=== PATIENT | female | born 1990 | race Caucasian/White ===

== ENCOUNTER 2017-05-24 05:29 | Day surgery (SDC) | payer BC, OTHER ==
[2017-05-24] MEDS ORDERED: PROPOFOL 200 MG/20 ML BOTTLE IV ONE (05:30)
[2017-05-24] MEDS ORDERED: GLYCOPYRROLATE 0.2 MG/ML VIAL MC ONE (05:30)
[2017-05-24] MEDS ORDERED: NEOSTIGMINE METHYLSULFATE 10 MG/10 ML VIAL IV ONE (05:30)
[2017-05-24] MEDS ORDERED: LIDOCAINE HCL 1% 20 ML VIAL MC ONE (05:30)
[2017-05-24] MEDS ORDERED: CEFAZOLIN 1 G VIAL MC ONE (05:30)
[2017-05-24] MEDS ORDERED: ONDANSETRON 4 MG/2 ML VIAL IV ONE (05:30)
[2017-05-24] MEDS ORDERED: IV LACTATED RINGERS SOLUTION 1,000 ML BAG IV ONE (05:30)
[2017-05-24] MEDS ORDERED: DEXAMETHASONE SOD PHOSPHATE 4 MG INJ IV ONE (05:30)
[2017-05-24] MEDS ORDERED: DESFLURANE ANESTHESIA GAS 240 ML BOTTLE IH ONE (05:30)
[2017-05-24] MEDS ORDERED: CEFAZOLIN 50 ML IV ONE (05:55)
[2017-05-24 06:01] LABS: *BILIRUBIN,URIN NEGATIVE (NEGATIVE); *BLOOD, URINE NEGATIVE (NEGATIVE); *CLARITY,URINE SLIGHTLY CLOUDY (CLEAR); *COLOR,URINE YELLOW (YELLOW); *KETONES,URINE NEGATIVE (NEGATIVE); *PROTEIN,URINE NEGATIVE (NEGATIVE); *UROBILINOGEN,URINE 0.2 E.U./dl (NORMAL); LEUKOCYTE ESTERASE ,URINE 1+ (NEGATIVE); NITRITE, URINE NEGATIVE (NEGATIVE); UGLUCOSE NEGATIVE (NEGATIVE)
[2017-05-24 06:04] LABS: *URINE HCG, QUAL NEGATIVE (NEGATIVE)
[2017-05-24 06:05] LABS: BACTERIA,URINE NONE SEEN /HPF (NONE SEEN); RBC,URINE NONE SEEN /HPF (0-3); SQUAMOUS EPITHELIAL CELL,UR MANY /HPF (NONE SEEN)
[2017-05-24 06:10] LABS: CREATININE 0.8 mg/dL (0.6-1.3); POTASSIUM 3.6 mmol/L (3.5-5.1)
[2017-05-24] MEDS ORDERED: BACITRACIN 50,000 UNITS VIAL ONE (06:41)
[2017-05-24] MEDS ORDERED: LIDOCAINE 1%-EPI 1:100,000 20 ML VIAL ONE (06:41)
[2017-05-24] MEDS ORDERED: MIDAZOLAM HCL 2 MG/2 ML VIAL ONE (07:08)
[2017-05-24] MEDS ORDERED: FENTANYL CITRATE 100 MCG/2 ML AMPUL ONE ×2 (07:08→08:34)
[2017-05-24] MEDS ORDERED: ROCURONIUM BROMIDE 50 MG/5 ML VIAL ONE (07:08)
== END 2017-05-24 10:50 | disposition home or self-care (01) ==
LOC: DS 05:29
PROVIDERS: ATTEND Otolaryngology
DX: K13.29 Other disturbances of oral epithelium, including tongue (principal); Z98.890 Other specified postprocedural states; E66.9 Obesity, unspecified
CPT/HCPCS: 36415; 84703; A4649; A4663; J0690; J1100; J2250; J2405; J2710; J3010; J3490; J7120

== ENCOUNTER 2018-03-09 21:35 | Emergency (ER) | payer BC, OTHER ==
[~2018-03-09] VITALS: Ht 162.6 cm; Wt 104.3 kg
--- NOTE | 2018-03-09 23:05 | NUR ---
DR MARQUEZ QUIJANO MD AT BEDSIDE FOR MSE.
[2018-03-09] MEDS ORDERED: TETRACAINE HCL 0.5% OPHT DROP 2 ML BOTTLE ONE (23:15)
[2018-03-09] MEDS ORDERED: FLUORESCEIN SODIUM 1 MG STRIP ONE (23:15)
--- NOTE | 2018-03-09 23:43 | NUR ---
Patient discharged to home in stable conditon. Written and verbal after care instructions given. Patient verbalizes understanding of instructions. Pt ambuated from ER w/ steady gait. No aute distress noted. Pt took all personal belongings.
[2018-03-09 23:44] VITALS: BP 129/75
[2018-03-09] MEDS ORDERED: FLUORESCEIN SODIUM 1 MG STRIP OP ONE (23:45)
[2018-03-09] MEDS ORDERED: TETRACAINE HCL 0.5% OPHT DROP 2 ML BOTTLE OP ONE (23:45)
== END 2018-03-09 23:47 | disposition home or self-care (01) ==
LOC: ER 21:36
DX: H57.8 Other specified disorders of eye and adnexa (principal)
CPT/HCPCS: A4663